=== PATIENT | female | born 1995 | race African-American/Black ===

== ENCOUNTER 2023-08-16 11:00 | Emergency (ER) | payer MEDICAID, OTHER ==
[~2023-08-16] VITALS: Ht 167.6 cm; Wt 73.0 kg
[~2023-08-16 11:00] MED LIST: ONDA4TAB21 SL; PREN1CAP13 PO
[2023-08-16 11:04] VITALS: BP 110/67; PULSE 67; RESP 18; TEMP 98.6; O2SAT 100
[2023-08-16] MEDS ORDERED: ACETAMINOPHEN 325MG TABLET PO PRN (11:15)
[2023-08-16 11:32] LABS: BASOPHILS % 0.4 % (0.0-2.0); EOSINOPHILS % 3.3 % (0.0-5.0); HEMATOCRIT. 42.8 % (36.0-48.0); HEMOGLOBIN. 14.1 g/dL (12.0-16.0); LYMPHOCYTES % 25.9 % (20.0-50.0); MEAN CORPUSCULAR HEMOGLOBIN 29.5 pg (28.0-32.0); MEAN CORPUSCULAR VOLUME 89.2 fL (81.0-99.0); MEAN PLATELET VOLUME 8.2 fl (7.4-10.4); MONOCYTES % 8.9 % (2.0-8.0); NEUTROPHILS % 61.5 % (40.0-76.0); PLATELET 301 x1000/uL (130-400); RED CELL DISTRIBUTION WIDTH 13.7 % (11.6-14.6); WHITE BLOOD COUNT 8.7 x1000/uL (4.5-11.0)
[2023-08-16 11:55] LABS: CHLORIDE 109 mEq/L (98-107); POTASSIUM 4.1 mEq/L (3.5-5.1); SODIUM 141 mEq/L (136-145)
[2023-08-16 11:58] LABS: CALCIUM 9.5 mg/dL (8.7-10.4); CARBON DIOXIDE 29 mEq/L (21-32)
[2023-08-16 12:02] LABS: CLARITY URINE TURBID (CLEAR); COLOR URINE DARK YELLOW (YELLOW); GLUCOSE URINE NEGATIVE (NEGATIVE); KETONES URINE NEGATIVE (NEGATIVE); LEUKOCYTE ESTERASE URINE 2+ (NEGATIVE); NITRITE URINE POSITIVE (NEGATIVE); OCCULT BLOOD URINE 3+ (NEGATIVE); PH URINE 7.5 (4.5-8.0); PROTEIN URINE 1+ (NEGATIVE); SPECIFIC GRAVITY URINE 1.025 (1.005-1.030)
[2023-08-16 12:03] LABS: CREATININE 0.8 mg/dL (0.6-1.0); GLUCOSE 83 mg/dL (70-105); UREA NITROGEN BLOOD 7 mg/dL (9-23)
[2023-08-16 12:04] LABS: ALANINE AMINOTRANSFERASE 13 IU/L (10-49); ALBUMIN 4.7 g/dL (3.2-4.8); ASPARTATE AMINOTRANSFERASE 18 IU/L (<34)
[2023-08-16 12:05] LABS: BILIRUBIN DIRECT 0.1 mg/dL (<=3.0); BILIRUBIN TOTAL 0.4 mg/dL (0.1-1.0); PROTEIN TOTAL 7.9 g/dL (6.0-8.3)
[2023-08-16 12:15] LABS: MUCUS URINE 3+ /lpf (< = 2+); SQUAMOUS EPITHELIAL CELL URINE 3+ /lpf (RARE/1+)
[2023-08-16 12:16] LABS: WBC URINE 25-50 /hpf (0-2)
[2023-08-16 12:17] LABS: BACTERIA URINE 4+; RBC URINE 0-2 /hpf (0-2)
[2023-08-16 12:27] LABS: TRIPLE PHOSPHATE CRYSTAL URINE 1+ /lpf
[2023-08-16 12:32] LABS: B-HCG QUANTITATIVE 1 mIU/mL (<3)
[2023-08-16] MEDS ORDERED: CEPH500C2 MT (13:35)
[2023-08-16] MEDS: ONDANSETRON 4MG ODT PO ONE (13:45)
== END 2023-08-16 13:40 | disposition home or self-care (01) ==
LOC: ER 11:00
DX: O23.41 Unspecified infection of urinary tract in pregnancy, first trimester (principal); N39.0 Urinary tract infection, site not specified; Z3A.01 Less than 8 weeks gestation of pregnancy
CPT/HCPCS: 36415; 76830; 76856; 80048; 80076; 81003; 81025; 84702; 85025; 86850; 86900; 99284

== ENCOUNTER 2024-01-05 13:01 | Emergency (ER) | payer MEDICAID ==
[~2024-01-05] VITALS: Ht 160 cm; Wt 70.0 kg
[2024-01-05 13:03] VITALS: O2SAT 100
[2024-01-05 13:51] VITALS: TEMP 37.00296
[2024-01-05] MEDS: SODIUM CHLORIDE 0.9% 1,000 ML IV ONE (13:58)
[2024-01-05] MEDS: PANTOPRAZOLE SODIUM 40 MG/VIAL IV STA (13:58)
[2024-01-05] MEDS: METOCLOPRAMIDE HCL 10MG/2ML VIAL IV STA (13:58)
[2024-01-05 14:08] LABS: BASOPHILS % 0.2 % (0.0-2.0); EOSINOPHILS % 0.1 % (0.0-5.0); HEMOGLOBIN. 14.3 g/dL (12.0-16.0); LYMPHOCYTES % 7.3 % (20.0-50.0); MEAN CORPUSCULAR HEMOGLOBIN 31.2 pg (28.0-32.0); MEAN CORPUSCULAR HGB CONC 33.3 g/dL (31.0-37.0); MEAN CORPUSCULAR VOLUME 93.8 fL (81.0-99.0); MEAN PLATELET VOLUME 9.1 fl (7.4-10.4); MONOCYTES % 3.6 % (2.0-8.0); NEUTROPHILS % 88.8 % (40.0-76.0); PLATELET 250 x1000/uL (130-400); RED BLOOD CELL COUNT 4.59 mill/uL (4.2-5.4); RED CELL DISTRIBUTION WIDTH 13.8 % (11.6-14.6); WHITE BLOOD COUNT 13.9 x1000/uL (4.5-11.0)
[2024-01-05 14:16] LABS: HCG SCREEN NEGATIVE
[2024-01-05 14:21] LABS: CHLORIDE 109 mEq/L (98-107); POTASSIUM 3.4 mEq/L (3.5-5.1); SODIUM 141 mEq/L (136-145)
[2024-01-05 14:22] LABS: CALCIUM 9.6 mg/dL (8.7-10.4); CARBON DIOXIDE 19 mEq/L (21-32)
[2024-01-05 14:27] LABS: CREATININE 0.8 mg/dL (0.6-1.0); GLUCOSE 85 mg/dL (70-105); UREA NITROGEN BLOOD 11 mg/dL (9-23)
[2024-01-05 14:29] LABS: ALANINE AMINOTRANSFERASE 20 IU/L (10-49); ALBUMIN 5.1 g/dL (3.2-4.8); ASPARTATE AMINOTRANSFERASE 45 IU/L (<34); BILIRUBIN DIRECT 0.1 mg/dL (<=3.0); BILIRUBIN TOTAL 0.5 mg/dL (0.1-1.0)
[2024-01-05 14:36] LABS: ETHANOL BLOOD < 10 mg/dL (<10); PROTEIN TOTAL 8.5 g/dL (6.0-8.3)
[2024-01-05] MEDS: ONDANSETRON HCL 4MG/2ML INJ IV ONE (14:51)
[2024-01-05] MEDS: MORPHINE SULFATE 4 MG/ML INJ (FOR IV/IM USE) IV ONE (14:51)
[2024-01-05 15:47] LABS: PROTHROMBIN TIME 11.4 sec (9.6-11.0)
[2024-01-05 16:21] LABS: CLARITY URINE CLEAR (CLEAR); COLOR URINE YELLOW (YELLOW); GLUCOSE URINE NEGATIVE (NEGATIVE); KETONES URINE 4+ (NEGATIVE); LEUKOCYTE ESTERASE URINE NEGATIVE (NEGATIVE); NITRITE URINE NEGATIVE (NEGATIVE); OCCULT BLOOD URINE 2+ (NEGATIVE); PH URINE 5.5 (4.5-8.0); PROTEIN URINE 1+ (NEGATIVE); SPECIFIC GRAVITY URINE 1.022 (1.005-1.030); UROBILINOGEN URINE 0.2 E.U./dL (0.2-1.0)
[2024-01-05] MEDS: POTASSIUM CHLORIDE 20MEQ TABLET SR PO NR (16:26)
[2024-01-05 16:34] LABS: *AMPHETAMINES SCREEN URINE NEGATIVE (NEGATIVE); *BARBITURATES SCREEN URINE NEGATIVE (NEGATIVE); *BENZODIAZEPINES SCREEN URINE NEGATIVE (NEGATIVE); *COCAINE SCREEN URINE NEGATIVE (NEGATIVE); CANNABINOID URINE SCREEN PRESUMPTIVE POSITIVE (NEGATIVE); ECSTASY MDMA SCREEN URINE NEGATIVE (NEGATIVE); METHADONE URINE SCREEN NEGATIVE (NEGATIVE); OPIATES URINE SCREEN PRESUMPTIVE POSITIVE (NEGATIVE); PHENCYCLIDINE URINE SCREEN NEGATIVE (NEGATIVE)
[2024-01-05 16:35] LABS: BACTERIA URINE FEW; SQUAMOUS EPITHELIAL CELL URINE 2+ /lpf (RARE/1+); WBC URINE 0-2 /hpf (0-2); YEAST URINE NONE SEEN
[2024-01-05] MEDS: DEXT 5%/LACTATED RINGERS 1,000 ML IV ONE (17:00)
[2024-01-05] MEDS ORDERED: METO5TAB86 MT (17:44)
[2024-01-05 18:02] VITALS: BP 102/61; PULSE 78; RESP 16; O2SAT 100
== END 2024-01-05 18:07 | disposition home or self-care (01) ==
LOC: ER 13:01
DX: R11.2 Nausea with vomiting, unspecified (principal); R11.15 Cyclical vomiting syndrome unrelated to migraine; F12.90 Cannabis use, unspecified, uncomplicated; Z79.899 Other long term (current) drug therapy
CPT/HCPCS: 80076; 80305; 80048; 81003; 81025; 80320; 84703; 83690; 85025; 85610; 36415; 96361; 96374; 96375; 99285; J2765; J2405; J2470; J2270; J7121; J7030; Z7610 ×4; G0480